=== PATIENT | male | born 1980 | race Caucasian/White ===

== ENCOUNTER → 2019-08-10 12:10 | Outpatient (CLI) | payer BC, SELFPAY ==
--- NOTE | ~2019-08-10 | XR_ITS ---
XR chest 2V DATE: 08/10/2019 12:21 INDICATION: Cough. Asthma. TECHNIQUE: PA and lateral views COMPARISON: None FINDINGS: Normal heart size. No hilar or mediastinal enlargement. There is mild atelectasis at the lung bases, with hypoexpansion of the lungs. No consolidation, pleur al effusion or pneumothorax is detected. Thoracolumbar scoliosis. IMPRESSION: Hypoexpansion, bibasilar atelectasis Reviewed, dictated and finalized at location A.
== END ==
DX: J45.40 Moderate persistent asthma, uncomplicated (principal); R05 Cough; R91.8 Other nonspecific abnormal finding of lung field
CPT/HCPCS: 71046

== ENCOUNTER → 2020-08-13 14:13 | Outpatient (CLI) | payer BC, SELFPAY ==
--- NOTE | ~2020-08-13 | MR_ITS ---
EXAMINATION: MRA brain wo con EXAM DATE: 08/13/2020 15:16 INDICATION: Family history of brain aneurysm family hx of brain aneurysm. High blood pressure. TECHNIQUE: 3-D [id number] MRA of the intracranial arteries was performed without contrast. There is no prior study for comparison. FINDINGS: There is normal flow related signal seen within the vertebral, basilar and internal carotid arteries. There is no proximal stenosis. There are no aneurysms identified. Flow in the cerebral arteries i s symmetric. 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 IMPRESSION: Normal MRA brain exam. Reviewed, dictated and finalized at location A. IMPRESSION: Normal MRA brain exam.
== END ==
PROVIDERS: PCP Internal Medicine; Visit Provider Physician Assistant Medical
DX: Z82.49 Family history of ischemic heart disease and other diseases of the circulatory system (principal)
CPT/HCPCS: 70544

== ENCOUNTER 2021-12-30 13:41 | Outpatient (CLI) | payer BC, SELFPAY ==
[2021-12-30 14:10] LABS: Basophils Percent Auto 0.5 % (0.2-1.2); Eosinophils Absolute Auto 0.1 K/mm3 (0-0.3); Eosinophils Percent Auto 2.1 % (0-4.4); Hemoglobin 12.5 g/dL (14.0-18.0); Immature Granulocyte Absolute 0.01 K/mm3 (0.00-0.031); Immature Granulocyte Percent A 0.2 % (0-0.5); Immature Platelet Fraction Pct 9.6 % (0.9-11.2); Lymphocytes Absolute Auto 2.03 K/mm3 (0.9-3.2); Lymphocytes Percent Auto 30.9 % (18.3-44.2); Mean Corpuscular HGB Conc 30.5 g/dl (32-36); Mean Corpuscular Hemoglobin 18.2 pg (26-34); Mean Corpuscular Volume 59.8 fl (80-100); Monocytes Absolute Auto 0.5 K/mm3 (0.1-0.6); Monocytes Percent Auto 7.6 % (2.6-8.5); Neutrophils Absolute Auto 3.9 K/mm3 (1.3-6.7); Neutrophils Percent Auto 58.7 % (45.5-73.1); Platelet Count Result 247 k/mm3 (150-375); Red Blood Count 6.86 M/mm3 (4.6-6.20); Red Cell Distribution Width 17.7 % (11.5-14.5); White Blood Count 6.6 K/mm3 (4.5-10.0)
[2021-12-30 16:06] LABS: Iron 110 ug/dL (49-181)
[2021-12-30 16:16] LABS: Percent Iron Saturation 30 % (20-50)
[2022-01-04 20:24] LABS: Hematocrit 43.5 % (38.5-50.0); Hemoglobin 12.4 g/dL (13.2-17.1); MCH 17.5 pg (27.0-33.0); MCV 61.3 fL (80.0-100.0); RDW 19.3 % (11.0-15.0)
== END 2021-12-30 13:42 | disposition home or self-care (01) ==
PROVIDERS: PCP Internal Medicine; Visit Provider Internal Medicine Hematology & Oncology
DX: D50.9 Iron deficiency anemia, unspecified (principal)
CPT/HCPCS: 36415; 82728; 83021; 83540; 83550; 85025; 85055

== ENCOUNTER 2024-02-16 09:36 | Outpatient (CLI) | payer BC, SELFPAY ==
--- NOTE | ~2024-02-16 | CT_ITS ---
EXAMINATION: CT soft tissue neck w con DATE: 02/16/2024 10:35 INDICATION: Localized swelling, mass and lump, neck. Left submandibular mass. TECHNIQUE: Computed tomography (CT) of the neck was performed with 75 mL Omnipaque-350 intravenous co ntrast. Automated exposure control and iterative reconstruction technique were employed. The dose-sherri gth product was 398.46 mGy-cm. COMPARISON: None FINDINGS: There is a 12 x 16 mm high right internal jugular chain lymph node. The major salivary glan ds are normal. There is severe fatty atrophy of anterior belly of right digastric muscle. There is pl aque in the proximal internal carotid arteries with 0% stenosis relative to normal distal artery lume n diameters. There is thoracic kyphosis and lumbar spondylosis. IMPRESSION: 1. Borderline enlarged high right internal jugular chain lymph node, likely reactive. Reviewed, dictated and finalized at location A. IMPRESSION: 1. Borderline enlarged high right internal jugular chain lymph node, likely kayode ctive.
[2024-02-16 09:56] LABS: Estimated Glomerular Filt Rate > 60
== END 2024-02-16 09:37 | disposition home or self-care (01) ==
LOC: MICIMG 09:36
PROVIDERS: PCP Physician Assistant Medical; Visit Provider Physician Assistant Medical
DX: R22.1 Localized swelling, mass and lump, neck (principal)
CPT/HCPCS: 70491; Q9967